=== PATIENT | female | born 1955 | race Caucasian/White ===

== ENCOUNTER → 2016-05-04 | Outpatient (CLI) | payer OTHER ==
--- NOTE | 2016-05-04 11:07 | DI ---
MRI LOW EXTREMITY JNT W/O CN,05/04/2016 9:48 AM: Clinical History: Right knee pain. Previous Exam: None at this facility. Findings: Multiplanar MR images are obtained through the right knee without contrast. Bony alignment is anatomic. No fractures are seen. Marrow signal is preserved. There is a complex undersurface tear of the body of the medial meniscus. The anterior and posterior cruciate ligaments are intact. The medial and lateral collateral ligaments are intact. The major vascular flow voids are unremarkable. There is no evidence of Ng's cyst. The quadriceps and patellar tendons are intact. There is a small knee joint effusion. There is mild thinning of the articular cartilage of the medial compartment without full-thickness de fects. There is thinning of the articular cartilage of the anterior compartment as well without full- thickness defects. The arcuate ligament and the popliteus tendon are unremarkable. Impression: 1. Complex tear of the undersurface of the body of the medial meniscus. 2. Small knee joint effusion. 3. 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
== END ==
LOC: MRI 09:39
PROVIDERS: ATTEND Orthopaedic Surgery
DX: M25.561 Pain in right knee (principal); M25.461 Effusion, right knee; S83.231A Complex tear of medial meniscus, current injury, right knee, initial encounter; M94.261 Chondromalacia, right knee
CPT/HCPCS: 73721

== ENCOUNTER → 2016-07-31 | Outpatient (CLI) | payer OTHER ==
[2016-07-31 19:26] LABS: HEMOGLOBIN A1C 6.36 % (4.2-6.0)
== END ==
LOC: LAB 14:55
PROVIDERS: ATTEND Nurse Practitioner Family
DX: E11.9 Type 2 diabetes mellitus without complications (principal); R94.6 Abnormal results of thyroid function studies
CPT/HCPCS: 83036; 84443